=== PATIENT | female | born 1960 | race Caucasian/White ===

== ENCOUNTER → 2016-07-12 | Outpatient (CLI) | payer MEDICARE, OTHER ==
[~2016-07-12] MED LIST: ACTOS PO; ALLEGRA PO; ATIVAN PO; BENADRYL25 M1 PO; BISOPROLOL/HCTZ1 TA3 PO; EFFEXOR XR PO; LEVAQUIN PO; LOTRISONE CREAM45 GM TOP; MACROBID100 MG PO; RISPERIDONE PO; ROBITUSSIN ALL118 ML PO; TRICOR PO; ZOCOR PO
--- NOTE | ~2016-07-12 | MY11 ---
[facility] A Service of [facility] RADIOLOGY TEXT RESULTS PATIENT: TERRANCE BETH LOCATION: [facility] : 56 UNIT #: [id number] AGE: [address]: Sreekanth Coker MD SEX: F ORDER DR: [id number] [address] [address] [id number] O MR#: [id number] Acc #: [id number] NAME: TERRANCE BETH : 1960 SEX: F STUDY DATE/TIME: 07/12/2016 10:17 UNIT: [facility] ROOM: STUDY DESCRIPTION: MY Mammogram Screening Dig Emiliano Attending Physician: Sreekanth Coker M.D. Referring Physician: Sreekanth Coker M.D. Ordering Physician: Sreekanth Coker M.D. Primary Care Physician: Sreekanth Coker M.D. MEDICAL IMAGING REPORT This report is preliminary unless electronic signature is present. EXAM Digital screening mammogram, 07/12/2016 HISTORY 55-year-old woman no risk elevation. Annual screening. COMPARISON Mammograms date to 12/22/2009 with most recent to 05/18/2015. FINDINGS Digital imaging of each breast was completed utilizing screening protocol. Review includes FDA-approved CAD device. Breast parenchyma is partially fatty replaced. There is nodularity present in each breast middle third locations mid to inner aspects. I see no suspicious mass characteristics. There are no interval occurring microcalcifications and no architectural deformity. IMPRESSION Stable benign mammogram. Annual screening recommended. Patients over the age of 40 are entered into a reminder system with target due date for the next mammogram. A result letter will also be sent to the patient. BIRADS: 2 Benign Finding STAT * RESULT Dictated by... Teodoro Pederson M.D. THIS IS AN ELECTRONICALLY VERIFIED REPORT [facility] A Service of [facility] RADIOLOGY TEXT RESULTS PATIENT: TERRANCE BETH LOCATION: [facility] : 56 UNIT #: [id number] AGE: [address]: Sreekanth Coker MD SEX: F ORDER DR: Teodoro Pederson M.D. at 07/12/2016 10:50 AM Isatu TD: 07/12/2016 10:22 JOB #: [id number] MEDICAL IMAGING REPORT Page 1 of 1
== END | disposition home or self-care (01) ==
LOC: SMAM 09:52
DX: Z12.31 Encounter for screening mammogram for malignant neoplasm of breast (principal)
CPT/HCPCS: G0202